=== PATIENT | male | born 1960 | race Caucasian/White ===

== ENCOUNTER 2020-11-02 08:52 | Emergency (ER) | payer OTHER ==
[2020-11-02 09:02] VITALS: TEMP 97.8; BMI 29.0
[2020-11-02] MEDS ORDERED: DIPHTH,PERTUSS(ACELL),TET 0.5 ML DISP.SYRIN IM ONE ×2 (09:07→09:08)
[2020-11-02] MEDS ORDERED: SODIUM CHLORIDE 0.9% 500 ML INFUS.BAG IV ONE (09:08)
[2020-11-02] MEDS ORDERED: ACETAMINOPHEN 1000 MG/100 ML VIAL (NON FORMULARY) IVPB ONE (09:09)
[2020-11-02] MEDS ORDERED: ACETAMINOPHEN INJECTION 100 ML IVPB ONE (09:09)
[2020-11-02] MEDS ORDERED: CEFAZOLIN 2 GM in DEXTROSE 5%-WATER - 50 ML IVPB ONE (09:11)
[2020-11-02] MEDS ORDERED: WATER IVPB SCH (09:15)
[2020-11-02] MEDS ORDERED: GENTAMICIN IVPB SCH (09:15)
[2020-11-02] MEDS ORDERED: DEXTROSE 5% IVPB SCH (09:15)
[2020-11-02] MEDS ORDERED: ceFAZolin SODIUM 1 GM VIAL ONE (09:16)
[2020-11-02 09:31] LABS: BASO % 3.8 % (0-2.0); EOS % 3.6 % (0-4.5); HEMATOCRIT 43.6 % (35.4-49); LYMPH % 39.1 % (8-40); MCH 33.5 pg (25.7-33.7); MCHC 34.4 g/dl (32.0-35.9); MEAN CELL VOLUME 97.5 fl (80-96); MEAN PLT VOLUME 8.5 fl (7.5-11.1); NEUT % 44.5 % (42.8-82.8); PLATELET COUNT 240 10^3/uL (134-434); RBC 4.47 M/mm3 (4.00-5.60); RDW 12.4 % (11.9-15.9); WHITE BLOOD COUNT 7.6 K/mm3 (4.0-10.8)
[2020-11-02] MEDS ORDERED: HYDROmorphone HCL CARPU-JECT 1 MG/1 ML DISP.SYRIN IVPB ONE (09:40)
[2020-11-02] MEDS ORDERED: HYDROmorphone HCL/PF 1 MG/ML VIAL ONE (09:42)
[2020-11-02 09:47] LABS: ALBUMIN 4.5 g/dl (3.4-5.0); BILIRUBIN,TOTAL 1.2 mg/dl (0.2-1); CALCIUM 9.7 mg/dl (8.5-10); CREATININE 0.8 mg/dl (0.55-1.3); TOT PROT 7.8 g/dl (6.4-8.2)
[2020-11-02 09:59] LABS: ACTIVATED PTT 28.7 SECONDS (25.2-36.5); INR 0.96 (0.82-1.09); PROTHROMBIN TIME (PATIENT) 10.8 SEC (10.2-13.0)
[2020-11-02 10:01] VITALS: BP 147/87; PULSE 69
== END 2020-11-02 10:15 | disposition short-term general hospital (02) ==
LOC: FER 08:52
PROC: 3E03329 Introduction of Other Anti-infective into Peripheral Vein, Percutaneous Approach (ICD-10-PCS; principal; 2020-11-02)
PROC: 3E033NZ Introduction of Analgesics, Hypnotics, Sedatives into Peripheral Vein, Percutaneous Approach (ICD-10-PCS; 2020-11-02)
PROC: 3E033GC Introduction of Other Therapeutic Substance into Peripheral Vein, Percutaneous Approach (ICD-10-PCS; 2020-11-02)
PROC: 3E0234Z Introduction of Serum, Toxoid and Vaccine into Muscle, Percutaneous Approach (ICD-10-PCS; 2020-11-02)
DX: S68.611A Complete traumatic transphalangeal amputation of left index finger, initial encounter (principal)
CPT/HCPCS: 36415; 73130-TC-LT-FY; 80053; 85025; 85610; 85730; 86850; 86900; 86901; 90715; 99284-25; J0131